=== PATIENT | male | born 1960 | race Caucasian/White ===

== ENCOUNTER 2019-05-23 10:34 | Inpatient (IN) | payer OTHER ==
[2019-05-23 10:51] VITALS: BMI 39.9
--- NOTE | 2019-05-23 11:03 | HP ---
COWS - Scale Resting Pulse: 1= [place] 81-100 Sweatin=Flushed/Facial Moisture Restless Observation: 1= Difficult to Sit Still Pupil Size: 1= Pupils >than Normal Bone or Joint Aches: 1= Mild Discomfort Runny Nose/ Eye Tearin= Runny Nose/Eyes GI Upset > 30mins: 2= Nausea/Diarrhea Tremor Observation: 1= Tremor Center, Not Seen Yawning Observation: 2= >3x During Session Anxiety or Irritability: 2=Irritable/Anxious Goose Flesh Skin: 0=Smooth Skin COWS Score: 15 CIWA Score - Admission Criteria OASAS Guidelines: Admission for Medically Managed Detox: Requires at least one of the followin. CIWA greater than 12 2. Seizures within the past 24 hours 3. Delirium tremens within the past 24 hours 4. Hallucinations within the past 24 hours 5. Acute intervention needed for co occurring medical disorder 6. Acute intervention needed for co occurring psychiatric disorder 7. Severe withdrawal that cannot be handled at a lower level of care (continued vomiting, continued diarrhea, abnormal vital signs) requiring intravenous medication and/or fluids 8. Admitting History and Physical - Admission Chief Complaint: " I have a drug problem and I have had it for a long time. He was sent by parole for detox." History of Present Illness: 49 year old male with history of dependence with withdrawals. He has been using 5-15 bags of heroin daily, last used yesterday midnight. He overdosed on fentanyl 3 years ago. He does not carry a narcan but his sister does. He smokes ciggarettes 1ppd for 10 years, last smoked today. He is also using crack $100 daily, last used this morning at 6AM He does drink beers almost every day. Never had blackouts or withdrawal seizures PMH: Umbilical Hearnia, History of bilateral cellulitis that keeps recurring. HTN but on no meds Psurg: None Psych: None He is homeless in assisted system. Patient has parole due to drug sales. History Source: Patient Limitations to Obtaining History: No Limitations - Past Medical History Cardiovascular: Yes: HTN Gastrointestinal: Yes: Other (umbilical hernia) Dermatology: Yes: Other (dry skin and cellulitis) - Past Surgical History Past Surgical History: Yes: None - Advance Directives Advance Directives: No: Living Will, Health Care Proxy, DNR - Smoking History Smoking history: Current every day smoker Have you smoked in the past 12 months: Yes Aproximately how many cigarettes per day: 20 - Alcohol/Substance Use Hx Alcohol Use: Yes Number of Drinks Daily: 6 (not daily) History of Substance Use: reports: Cocaine, Heroin - Social History Usual Living Arrangement: Yes: Alone Do you think of yourself as: Straight/Heterosexual ADL: Independent History of Recent Travel: Yes Admission [facility] Chief Complaint: " I have a drug problem and I have had it for a long time. He was sent by parole for detox." Allergies/Adverse Reactions: Allergies Allergy/AdvReac Type Severity Reaction Status Date / Time Penicillins Allergy Intermediate Hives Verified 05/23/19 10:44 History of Present Illness: 49 year old male with history of dependence with withdrawals. He has been using 5-15 bags of heroin daily, last used yesterday midnight. He overdosed on fentanyl 3 years ago. He does not carry a narcan but his sister does. He smokes ciggarettes 1ppd for 10 years, last smoked today. He is also using crack $100 daily, last used this morning at 6AM He does drink beers almost every day. Never had withdrawal seizures or blackout. PMH: Umbilical Hearnia, History of bilateral cellulitis that keeps recurring. HTN but on no meds Psurg: None Psych: None He is homeless in assisted system. Patient has parole due to drug sales. 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) Neuro: reports: No Symptoms reported Endocrine: reports: No Symptoms Reported Hematology: reports: No Symptoms Reported Psychiatric: reports: Judgement Intact, Mood/Affect Appropiate, Orientated x3 Other Systems: Reviewed and Negative Patient History - Patient Medical History Hx Anemia: No Hx Asthma: No Hx Chronic Obstructive Pulmonary Disease (COPD): No Hx Cancer: No Hx Cardiac Disorders: No Hx Congestive Heart Failure: No Hx Hypertension: No Hx Hypercholesterolemia: No Hx Pacemaker: No HX Cerebrovascular Accident: No Hx Seizures: No Hx Dementia: No Hx Diabetes: No Hx Gastrointestinal Disorders: No Hx Liver Disease: No Hx Genitourinary Disorders: No Hx Sexually Transmitted Disorders: No Hx Renal Disease (ESRD): No Hx Thyroid Disease: No Hx Human Immunodeficiency Virus (HIV): No Hx Hepatitis C: No Hx Depression: No Hx Suicide Attempt: No Hx Bipolar Disorder: No Hx Schizophrenia: No - Patient Surgical History Past Surgical History: No Hx Neurologic Surgery: No Hx Cataract Extraction: No Hx Cardiac Surgery: No Hx Lung Surgery: No Hx Breast Surgery: No Hx Breast Biopsy: No Hx Abdominal Surgery: No Hx Appendectomy: No Hx Cholecystectomy: No Hx Genitourinary Surgery: No Hx Section: No Hx Orthopedic Surgery: No Anesthesia Reaction: No - PPD History Date: 12/05/15 - Smoking Cessation Smoking history: Current every day smoker Have you smoked in the past 12 months: Yes Aproximately how many cigarettes per day: 20 Hx Chewing Tobacco Use: No Initiated information on smoking cessation: Yes 'Breaking Loose' booklet given: 05/23/19 - Substances abused Alcohol Substance route: Oral Frequency: Daily Amount used: 5-6 cans of beer Age of first use: 13 Date of last use: 05/22/19 Heroin Substance route: Inhalation Frequency: Daily Amount used: 5- 15bags Age of first use: 26 Date of last use: 05/22/19 Cocaine Substance route: Smoking Frequency: Daily Amount used: $200-400 Age of first use: 18 Date of last use: 05/23/19 Admission Physical Exam S - Vital Signs Vital Signs: Vital Signs - 24 hr 05/23/19 10:44 Temperature 97.3 F L Pulse Rate 65 Respiratory 20 Rate Blood Pressure 122/70 - Physical General Appearance: Yes: Mild Distress HEENTM: Yes: EOMI, Hearing grossly Normal, Normal ENT Inspection, Normocephalic , Normal Voice, [place], Pharynx Normal, Tm's normal Respiratory: Yes: Chest Non-Tender, Lungs Clear, Normal Breath Sounds, No Respiratory Distress, No Accessory Muscle Use Neck: Yes: No masses,lesions,Nodules, Supple, Trachea in good position Breast: Yes: Within Normal Limits Cardiology: Yes: Regular Rhythm, Regular Rate, S1, S2 Abdominal: Yes: Increased Bowel Sounds, Protuberent, Distended, Other ( umbilical hernia reducible) Genitourinary: Yes: Within Normal Limits Back: Yes: Within Normal Limits Musculoskeletal: Yes: full range of Motion, Gait Steady, Pelvis Stable Extremities: Yes: Normal Capillary Refill, Normal Inspection, Normal Range of Motion, Non-Tender 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: 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: 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, Fully Oriented, Alert, Motor Strength 5/5, Normal Mood/Affect Integumentary: Yes: Dry, Warm, Erythema Lymphatic: Yes: Within Normal Limits - Diagnostic (1) Nicotine dependence Current Visit: Yes Status: Acute (2) Opioid dependence Current Visit: Yes Status: Acute (3) Pedal edema Current Visit: Yes Status: Acute (4) Obesity Current Visit: Yes Status: Chronic Qualifiers: Obesity type: due to excess calories Qualified Code(s): E66.01 - Morbid ( severe) obesity due to excess calories (5) Heroin dependence Current Visit: Yes Status: Acute Cleared for Admission [facility] - Detox or Rehab [facility] Level of Care: Medically Managed Detox Regimen/Protocol: Methadone Screened but not Admitted - Documentation of Visit Screened but not Admitted: No Breathalyzer - Breathalyzer Breathalyzer: 0 Vital Signs - Vital Signs Vital signs refused: No Inpatient Rehab Admission - Rehab Decision to Admit Inpatient rehab admission?: No
[2019-05-23] MEDS ORDERED: MELATONIN 5 MG TABLETS PO PRN (11:14)
[2019-05-23] MEDS ORDERED: BISMUTH SUBSALICYLATE 262 MG/15 ML BTL PO PRN (11:14)
[2019-05-23] MEDS ORDERED: hydrOXYzine PAMOATE 25 MG CAPSULE (FP) PO PRN (11:14)
[2019-05-23] MEDS ORDERED: cloNIDine HCL 0.1 MG TABLET PO PRN (11:14)
[2019-05-23] MEDS ORDERED: IBUPROFEN 400 MG TABLET (FP) PO PRN (11:14)
[2019-05-23] MEDS ORDERED: MAGNESIUM CITRATE 300 ML BOTTLE PO PRN (11:14)
[2019-05-23] MEDS ORDERED: ACETAMINOPHEN 325 MG TABLET (FP) PO PRN ×2 (11:14)
[2019-05-23] MEDS ORDERED: MAG HYDROX/AL HYDROX/SIMETH 30 ML UNIT-DOSE CUP PO PRN (11:14)
[2019-05-23] MEDS ORDERED: MENTHOL/PHENOL 1 EACH UD MM PRN (11:14)
[2019-05-23] MEDS ORDERED: METHOCARBAMOL 500 MG TABLET PO PRN (11:14)
[2019-05-23] MEDS ORDERED: MAGNESIUM HYDROX 2400MG/30ML ORAL SUSPENSION 30 ML CUP PO PRN (11:14)
[2019-05-23] MEDS ORDERED: COLLOIDAL OATMEAL 1 BAR EACH TP PRN (11:55)
[2019-05-23] MEDS ORDERED: METHADONE HCL 10 MG TABLET (FOR DETOX USE ONLY) PO ONE (11:55)
[2019-05-23] MEDS ORDERED: HYDROCORTISONE 0.5% TOPICAL OINTMENT TUBE TP PRN (11:55)
[2019-05-23 14:55] LABS: HEMATOCRIT 37.6 % (35.4-49); HEMOGLOBIN 12.6 GM/dL (11.7-16.9); MCH 29.6 pg (25.7-33.7); MCHC 33.5 g/dl (32.0-35.9); MEAN CELL VOLUME 88.6 fl (80-96); MEAN PLT VOLUME 9.9 fl (7.5-11.1); PLATELET COUNT 253 K/MM3 (134-434); RBC 4.24 M/mm3 (4.00-5.60); RDW 14.8 % (11.9-15.9); WHITE BLOOD COUNT 6.1 K/mm3 (4.0-10.0)
[2019-05-23 15:14] LABS: ALBUMIN 3.1 g/dl (3.4-5.0); BILIRUBIN,TOTAL 0.6 mg/dL (0.2-1); BLOOD UREA NITROGEN 13.7 mg/dL (7-18); CALCIUM 8.5 mg/dL (8.5-10.1); POTASSIUM 3.8 mmol/L (3.5-5.1); TOT PROT 6.1 g/dl (6.4-8.2)
[2019-05-23] MEDS: HYDROCORTISONE 1% TOPICAL CREAM 30 GM TUBE TP SCH ×2 (18:00→22:13)
[2019-05-23] MEDS: MUPIROCIN 2% TOPICAL OINTMENT 22 GM TUBE TP SCH (22:12)
[2019-05-23] MEDS: THIAMINE HCL 100 MG TABLET (FP) PO SCH (22:13)
[2019-05-24] MEDS ORDERED: METHADONE HCL 5 MG TABLET (FOR DETOX USE ONLY) ONE (08:57)
[2019-05-24] MEDS ORDERED: METHADONE HCL 10 MG TABLET (FOR DETOX USE ONLY) ONE (08:57)
[2019-05-24] MEDS ORDERED: METHADONE (DETOX) 20 MG, METHADONE (DETOX) 5 MG PO ONE (10:00)
--- NOTE | 2019-05-24 10:06 | PN ---
[facility] COWS - Scale Resting Pulse: 0= [place] 80 or Below Sweatin= Chills/Flushing Restless Observation: 0= Sits Still Pupil Size: 1= Pupils >than Normal Bone or Joint Aches: 2= Severe Diffuse Aches Runny Nose/ Eye Tearin= Runny Nose/Eyes GI Upset > 30mins: 1= Stomach Cramp Tremor Observation of Outstretched Hands: 2= Slight Tremor Visible Yawning Observation: 2= >3x During Session Anxiety or Irritability: 2=Irritable/Anxious Goose Flesh Skin: 0=Smooth Skin COWS Score: 13 S Progress Note (SOAP) Subjective: 59 years old male admitted on 05/23/19 for opiate withdrawal sx management treated with methadone detox regimen ate breakfast patient tolerate food and fluid well discuss medication assisted treatment program Objective: 05/24/19 10:05 Vital Signs Temperature 97.4 F L 05/24/19 09:23 Pulse Rate 66 05/24/19 09:23 Respiratory Rate 18 05/24/19 09:23 Blood Pressure 128/66 05/24/19 09:23 O2 Sat by Pulse Oximetry (%) Laboratory Last Values WBC 6.1 K/mm3 (4.0-10.0) 05/23/19 12:00 RBC 4.24 M/mm3 (4.00-5.60) 05/23/19 12:00 Hgb 12.6 GM/dL (11.7-16.9) 05/23/19 12:00 Hct 37.6 % (35.4-49) 05/23/19 12:00 MCV 88.6 fl (80-96) 05/23/19 12:00 MCH 29.6 pg (25.7-33.7) 05/23/19 12:00 MCHC 33.5 g/dl (32.0-35.9) 05/23/19 12:00 RDW 14.8 % (11.9-15.9) 05/23/19 12:00 Plt Count 253 K/MM3 (134-434) D 05/23/19 12:00 MPV 9.9 fl (7.5-11.1) 05/23/19 12:00 Sodium 139 mmol/L (136-145) 05/23/19 12:00 Potassium 3.8 mmol/L (3.5-5.1) 05/23/19 12:00 Chloride 105 mmol/L (98-107) 05/23/19 12:00 Carbon Dioxide 28 mmol/L (21-32) 05/23/19 12:00 Anion Gap 6 MMOL/L (8-16) L 05/23/19 12:00 BUN 13.7 mg/dL (7-18) 05/23/19 12:00 Creatinine 1.0 mg/dL (0.55-1.3) 05/23/19 12:00 Est GFR (CKD-EPI)AfAm 93.73 05/23/19 12:00 Est GFR (CKD-EPI)NonAf 80.87 05/23/19 12:00 Random Glucose 102 mg/dL (74-106) 05/23/19 12:00 Calcium 8.5 mg/dL (8.5-10.1) 05/23/19 12:00 Total Bilirubin 0.6 mg/dL (0.2-1) 05/23/19 12:00 AST 47 U/L (15-37) H 05/23/19 12:00 ALT 35 U/L (13-61) 05/23/19 12:00 Alkaline Phosphatase 80 U/L (45-117) 05/23/19 12:00 Total Protein 6.1 g/dl (6.4-8.2) L 05/23/19 12:00 Albumin 3.1 g/dl (3.4-5.0) L 05/23/19 12:00 RPR Titer Nonreactive (NONREACTIVE) 05/23/19 12:00 lab noted Assessment: 05/24/19 10:05 opiate withdrawal sx management Plan: 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
[2019-05-24] MEDS: MUPIROCIN 2% TOPICAL OINTMENT 22 GM TUBE TP SCH ×2 (10:20→22:00)
[2019-05-24] MEDS: HYDROCORTISONE 1% TOPICAL CREAM 30 GM TUBE TP SCH ×4 (10:20→22:00)
[2019-05-24] MEDS: PRENATAL VITAMINS W/ FOLIC ACID TABLET (FP) PO SCH (10:20)
[2019-05-24] MEDS: NICOTINE 7 MG/24 HOURS TOPICAL PATCH TD SCH (10:25)
[2019-05-24] MEDS: THIAMINE HCL 100 MG TABLET (FP) PO SCH (22:00)
[2019-05-25] MEDS ORDERED: METHADONE HCL 10 MG TABLET (FOR DETOX USE ONLY) PO ONE (10:00)
[2019-05-25] MEDS: PRENATAL VITAMINS W/ FOLIC ACID TABLET (FP) PO SCH (10:08)
[2019-05-25] MEDS: MUPIROCIN 2% TOPICAL OINTMENT 22 GM TUBE TP SCH ×2 (10:08→22:05)
[2019-05-25] MEDS: NICOTINE 7 MG/24 HOURS TOPICAL PATCH TD SCH (10:09)
[2019-05-25] MEDS: HYDROCORTISONE 1% TOPICAL CREAM 30 GM TUBE TP SCH ×4 (10:09→22:05)
--- NOTE | 2019-05-25 10:52 | PN ---
[facility] COWS - Scale Resting Pulse: 0= [place] 80 or Below Sweatin= Chills/Flushing Restless Observation: 1= Difficult to Sit Still Pupil Size: 1= Pupils >than Normal Bone or Joint Aches: 1= Mild Discomfort Runny Nose/ Eye Tearin= Nasal Congestion GI Upset > 30mins: 1= Stomach Cramp Tremor Observation of Outstretched Hands: 0= None Yawning Observation: 0= None Anxiety or Irritability: 1=Feels Anxious/Irritable Goose Flesh Skin: 0=Smooth Skin COWS Score: 7 [facility] Progress Note (SOAP) Subjective: feeling better ,but interrupted sleep, sweats, Objective: 05/25/19 10:50 Vital Signs Temperature 96.9 F L 05/25/19 09:19 Pulse Rate 58 L 05/25/19 09:19 Respiratory Rate 20 05/25/19 09:19 Blood Pressure 150/81 05/25/19 09:19 O2 Sat by Pulse Oximetry (%) Laboratory Tests 05/23/19 05/23/19 05/23/19 12:00 12:00 12:00 WBC 6.1 RBC 4.24 Hgb 12.6 Hct 37.6 MCV 88.6 MCH 29.6 MCHC 33.5 RDW 14.8 Plt Count 253 D MPV 9.9 Sodium 139 Potassium 3.8 Chloride 105 Carbon Dioxide 28 Anion Gap 6 L BUN 13.7 Creatinine 1.0 Est GFR (CKD-EPI)AfAm 93.73 Est GFR (CKD-EPI)NonAf 80.87 Random Glucose 102 Calcium 8.5 Total Bilirubin 0.6 AST 47 H ALT 35 Alkaline Phosphatase 80 Total Protein 6.1 L Albumin 3.1 L RPR Titer Nonreactive pt aox3 in nad lying in bed Assessment: 05/25/19 10:51 withdrawal sx;s Plan: cont. detox increase fluids
[2019-05-25] MEDS: THIAMINE HCL 100 MG TABLET (FP) PO SCH (22:04)
[2019-05-26 06:16] VITALS: TEMP 98.2
[2019-05-26] MEDS ORDERED: METHADONE HCL 10 MG TABLET (FOR DETOX USE ONLY) ONE (08:20)
[2019-05-26] MEDS ORDERED: METHADONE HCL 5 MG TABLET (FOR DETOX USE ONLY) ONE (08:21)
[2019-05-26 09:09] VITALS: BP 130/71; PULSE 47
[2019-05-26] MEDS: NICOTINE 7 MG/24 HOURS TOPICAL PATCH TD SCH (09:40)
[2019-05-26] MEDS: PRENATAL VITAMINS W/ FOLIC ACID TABLET (FP) PO SCH (09:40)
[2019-05-26] MEDS: HYDROCORTISONE 1% TOPICAL CREAM 30 GM TUBE TP SCH (09:42)
[2019-05-26] MEDS: MUPIROCIN 2% TOPICAL OINTMENT 22 GM TUBE TP SCH (09:42)
[2019-05-26] MEDS ORDERED: METHADONE (DETOX) 10 MG, METHADONE (DETOX) 5 MG PO ONE (10:00)
--- NOTE | 2019-05-26 13:21 | DS ---
[facility] Detox Discharge Summary Admission Date: 05/23/19 Discharge Date: 05/26/19 (Pt left AMA) - History Present History: Alcohol Dependence, Cocaine Dependence, Opioid Dependence Additional Comments: Pt left AMA. Pt did not complete his detox protocol. Pt states, "i have personal stuff to take care off". An attempt to let pt stay and complete the detox protocol failed. Pt is encouraged to follow-up with an outpatient CD program and also to follow-up with his pmd. Pt verbalized understanding. Pt is AOX3 and in no acute respiratory distress. Pertinent Past History: H/O HTN, alcohol, cocaine, and heroin use disorder. - Physical Exam Results Vital Signs: Vital Signs Temperature 98.2 F 05/26/19 09:08 Pulse Rate 47 L 05/26/19 09:08 Respiratory Rate 18 05/26/19 09:08 Blood Pressure 130/71 05/26/19 09:08 O2 Sat by Pulse Oximetry (%) Vital Signs 05/26/19 05/26/19 06:11 09:08 Temperature 98.2 F 98.2 F Pulse Rate 50 L 47 L Respiratory 18 18 Rate Blood Pressure 146/76 130/71 Lab Results WBC 6.1 K/mm3 (4.0-10.0) 05/23/19 12:00 RBC 4.24 M/mm3 (4.00-5.60) 05/23/19 12:00 Hgb 12.6 GM/dL (11.7-16.9) 05/23/19 12:00 Hct 37.6 % (35.4-49) 05/23/19 12:00 MCV 88.6 fl (80-96) 05/23/19 12:00 MCHC 33.5 g/dl (32.0-35.9) 05/23/19 12:00 RDW 14.8 % (11.9-15.9) 05/23/19 12:00 Plt Count 253 K/MM3 (134-434) D 05/23/19 12:00 Sodium 139 mmol/L (136-145) 05/23/19 12:00 Potassium 3.8 mmol/L (3.5-5.1) 05/23/19 12:00 Chloride 105 mmol/L (98-107) 05/23/19 12:00 Carbon Dioxide 28 mmol/L (21-32) 05/23/19 12:00 Anion Gap 6 MMOL/L (8-16) L 05/23/19 12:00 BUN 13.7 mg/dL (7-18) 05/23/19 12:00 Creatinine 1.0 mg/dL (0.55-1.3) 05/23/19 12:00 Random Glucose 102 mg/dL (74-106) 05/23/19 12:00 Calcium 8.5 mg/dL (8.5-10.1) 05/23/19 12:00 Labs noted. Pertinent Admission Physical Exam Findings: withdrawal symptoms. - Treatment Hospital Course: Detox Protocol Followed, Detoxed Safely, Responded well, Discharged Condition Good - Medication Discharge Medications: Ambulatory Orders Naloxone HCl [Narcan] 4 mg NS ASDIR PRN #1 spray 05/24/19 - Diagnosis (1) Heroin dependence Current Visit: Yes Status: Acute (2) Nicotine dependence Current Visit: Yes Status: Acute (3) Pedal edema Current Visit: Yes Status: Acute (4) Alcohol dependence Current Visit: No Status: Acute (5) Bronchitis Current Visit: No Status: Chronic - AMA Did Patient Leave Against Medical Advice: Yes [facility] COWS - Scale Resting Pulse: 0= [place] 80 or Below Sweatin= Chills/Flushing Restless Observation: 1= Difficult to Sit Still Pupil Size: 0= Normal to Room Light Bone or Joint Aches: 2= Severe Diffuse Aches Runny Nose/ Eye Tearin= None GI Upset > 30mins: 0= None Tremor Observation of Outstretched Hands: 0= None Yawning Observation: 1= 1-2x During Session Anxiety or Irritability: 2=Irritable/Anxious Goose Flesh Skin: 0=Smooth Skin COWS Score: 7
[2019-05-27] MEDS ORDERED: METHADONE HCL 10 MG TABLET (FOR DETOX USE ONLY) PO ONE (10:00)
[2019-05-28] MEDS ORDERED: METHADONE HCL 5 MG TABLET (FOR DETOX USE ONLY) PO ONE (06:00)
== END 2019-05-26 12:40 | disposition left against medical advice (07) | DRG 770 ==
LOC: YASAS 10:34 → Y3N 11:30
PROVIDERS: ADMIT Allergy & Immunology; ATTEND Allergy & Immunology
PROC: HZ2ZZZZ Detoxification Services for Substance Abuse Treatment (ICD-10-PCS; principal; 2019-05-23)
DX: F11.23 Opioid dependence with withdrawal (principal); F10.230 Alcohol dependence with withdrawal, uncomplicated; F17.210 Nicotine dependence, cigarettes, uncomplicated; J42 Unspecified chronic bronchitis; L98.8 Other specified disorders of the skin and subcutaneous tissue; K42.9 Umbilical hernia without obstruction or gangrene; R60.0 Localized edema; E66.01 Morbid (severe) obesity due to excess calories; Z68.39 Body mass index [BMI] 39.0-39.9, adult; Z86.59 Personal history of other mental and behavioral disorders; Z88.0 Allergy status to penicillin
CPT/HCPCS: 36415; 80053; 85027; 86593